=== PATIENT | male | born 1970 | race African-American/Black ===

== ENCOUNTER 2021-12-31 21:03 | Emergency (ER) | payer OTHER ==
[~2021-12-31] VITALS: Ht 185.4 cm; Wt 83.9 kg
[2021-12-31 21:38] VITALS: BP 134/77
[2021-12-31] MEDS ORDERED: methylPREDNISolone SOD SUCC 125 MG/2 ML VL IM ONE (22:00)
[2021-12-31] MEDS ORDERED: KETOROLAC TROMETH 30 MG/ML 1ML VIAL IM ONE (22:00)
[2021-12-31] MEDS ORDERED: CEPH-322 PO (22:04)
[2021-12-31] MEDS ORDERED: IBUP800T27 PO (22:04)
== END 2021-12-31 23:13 | disposition home or self-care (01) ==
LOC: ER 21:07
DX: L03.012 Cellulitis of left finger (principal)
CPT/HCPCS: 96372; 99284; J1885; J2930

== ENCOUNTER 2023-03-15 16:52 | Emergency (ER) | payer MEDICAID, OTHER ==
[~2023-03-15] VITALS: Ht 185.4 cm; Wt 86.3 kg
[~2023-03-15 16:52] MED LIST: CEPH-322 PO; IBUP800T27 PO
[2023-03-15 17:10] VITALS: BP 114/73
== END 2023-03-15 18:33 | disposition left against medical advice (07) ==
LOC: ER 16:52
DX: M79.644 Pain in right finger(s) (principal); Z53.21 Procedure and treatment not carried out due to patient leaving prior to being seen by health care provider